=== PATIENT | male | born 1980 | race African-American/Black ===

== ENCOUNTER 2017-09-19 15:11 | Emergency (ER) | payer SELFPAY ==
[~2017-09-19] VITALS: Ht 172.7 cm; Wt 72.6 kg
[2017-09-19 15:12] VITALS: BP 110/71
[2017-09-19] MEDS ORDERED: LORazepam 1mg tab ORAL ONE (15:30)
--- NOTE | 2017-09-19 16:23 | Emergency Room Report ---
History of Present Illness General Chief Complaint: Behavioral Complaint Source: Patient, EMS Present Illness HPI 37-year-old male presents ED for evaluation. Patient brought in by EMS. States he's been hearing voices and feels very paranoid. States people are out to get him. Denies any suicidal or homicidal ideation. Admits to methamphetamine use for the last few days. Denies chest pain or shortness of breath. No other aggravating relieving factors. Denies any other associated symptoms Allergies: Coded Allergies: No Known Allergies (Unverified , 09/19/17) Patient History Past Medical History: none Past Surgical History: none Pertinent Family History: none Social History: Denies: smoking, alcohol use, drug use Immunizations: UTD Reviewed Nursing Documentation: PMH: Agreed; PSxH: Agreed Nursing Documentation-PMH Past Medical History: No History, Except For Review of Systems All Other Systems: negative except mentioned in HPI Physical Exam Vital Signs Date Time Temp Pulse Resp B/P (MAP) Pulse Ox O2 Delivery O2 Flow Rate FiO2 09/19/17 15:07 97.2 72 18 118/84 95 Room Air 97.2 Sp02 EP Interpretation: reviewed, normal General Appearance: no apparent distress, alert, GCS 15, non-toxic Head: normocephalic, atraumatic Eyes: bilateral eye normal inspection, bilateral eye PERRL ENT: hearing grossly normal, normal pharynx, no angioedema, normal voice Neck: full range of motion, supple/symm/no masses Respiratory: chest non-tender, lungs clear, normal breath sounds, speaking full sentences Cardiovascular #1: regular rate, rhythm, no edema Cardiovascular #2: 2+ carotid (R), 2+ carotid (L), 2+ radial (R), 2+ radial (L) , 2+ dorsalis pedis (R), 2+ dorsalis pedis (L) Gastrointestinal: normal bowel sounds, non tender, soft, non-distended, no guarding, no rebound Rectal: deferred Genitourinary: normal inspection, no CVA tenderness Musculoskeletal: back normal, gait/station normal, normal range of motion, non- tender Neurologic: alert, oriented x3, responsive, motor strength/tone normal, sensory intact, speech normal Psychiatric: judgement/insight normal, memory normal, no suicidal/homicidal ideation, anxious Reflexes: 3+ bicep (R), 3+ bicep (L), 3+ tricep (R), 3+ tricep (L), 3+ knee (R) , 3+ knee (L) Skin: normal color, no rash, warm/dry, well hydrated Lymphatic: no adenopathy Medical Decision Making Diagnostic Impression: Primary Impression: Substance abuse ER Course Hospital Course 37-year-old male presents ED hearing voices. Admits to meth use Clinical course Patient placed on stretcher. Given that patient is able to provide an adequate history, I see no need to check blood work or place an IV. Patient given Ativan. Patient allowed to sleep. My assessment shows no evidence of SI/HI requiring psychiatric evaluation. Patient allowed to rest in now awake alert oriented x3. ambulating without difficulty. patient safe for discharge Diagnosis - substance abuse stable and discharged to home. Followup with PMD. Return to ED if symptoms recur or worsen Last Vital Signs Date Time Temp Pulse Resp B/P (MAP) Pulse Ox O2 Delivery O2 Flow Rate FiO2 09/19/17 15:12 97.2 56 12 110/71 99 Room Air 97.2 Status: improved Disposition: HOME, SELF-CARE Condition: Stable Referrals: NOT CHOSEN IPA/,REFERRING (PCP) Virgilio Lopez MD Sep 19, 2017 16:23
[2017-09-19 20:10] VITALS: BP 124/77
== END 2017-09-19 20:10 | disposition home or self-care (01) ==
LOC: EDBD 15:11 → EMR 15:46
DX: F15.10 Other stimulant abuse, uncomplicated (principal)
CPT/HCPCS: 99283